=== PATIENT | male | born 1950 | race Caucasian/White ===

== ENCOUNTER 2016-04-28 12:28 | Inpatient (IN) | payer OTHER, BC ==
--- NOTE | ~2016-04-28 | CO ---
Unit #: [id number] #: [id number] Patient: AD DHILOLN [id number] [address] [address] [id number] I MR#: [id number] NAME: AD DHILLON ROOM: CIC2 Age: 65 Sex: M Admission Date: 04/28/2016 : 1950 Attending Physician: Ania Camarena M.D. Primary Care Physician: Hernando Benitez M.D. Consultation Date: 04/28/2016 CONSULTATION REPORT REASON FOR CONSULT Dialysis needs. HISTORY OF PRESENT ILLNESS Mr. Dhillon is a very pleasant 65-year-old white male well known to our service, who was admitted as an outpatient due to abnormal labs from the dialysis unit. Hemoglobin here in the emergency room was 4.7. The patient has a long standing history of GI bleeds with negative evaluations; however, this time he did have some bright red blood per rectum. Patient is due for dialysis today but came to the emergency room instead. Other than feeling a little weak, the patient otherwise is without complaint. He denies any abdominal pain. No nausea or vomiting. No chest pain or shortness of breath. No dizziness. PAST MEDICAL HISTORY 1. End-stage renal disease. 2. Chronic anemia with history of GI bleed. 3. Hypertension. 4. History of coronary artery disease. 5. COPD. 6. Pulmonary hypertension. 7. Diabetes. 8. Renovascular disease. 9. Valvular heart disease. 10. Obstructive sleep apnea. 11. Spinal stenosis. 12. BPH. 13. Polio. PAST SURGICAL HISTORY 1. CABG. 2. Lower extremity surgery. 3. Back surgery. 4. Cervical spine surgery. 5. Exploratory laparotomy because of the GI bleed. 6. Right arm fistula surgery. HOME MEDICATIONS 1. Catapres 0.2 mg t.i.d. 2. Minoxidil 2.5 mg twice daily. 3. Neurontin 100 mg twice daily. 4. Glipizide 10 mg twice daily. 5. Hydralazine 100 mg t.i.d. 6. Labetalol 300 mg twice daily. Unit #: [id number] #: [id number] Patient: AD DHILLON 7. Synthroid 75 mcg daily. 8. Lipitor 40 mg at bedtime. 9. Ventolin inhaler. 10. Sodium bicarbonate 650 mg p.o. t.i.d. 11. Amlodipine 5 mg daily. 12. Renvela 1600 mg daily. ALLERGIES He has a coded allergy to oxycodone. FAMILY HISTORY Significant for heart disease and lung cancer. SOCIAL HISTORY He has a history of smoking. No alcohol use. He lives with his . No drug use. He is noted to be a DNR. REVIEW OF SYSTEMS A complete 12-point review of systems was completed with the above findings. In addition, he denies any headaches or nosebleed. No sore throat or earache. No palpitations. No hemoptysis. No hematemesis. No melena. Again, the stool has been more bloody and purple. No swelling issues. No rashes. No itching. No flank pain. No fevers. No chills. No night sweats or hot flashes. No intolerance to heat or cold. No other bleeding issues noted. Weight has otherwise been stable. Unless otherwise indicated, the review of systems was negative. PHYSICAL EXAMINATION VITAL SIGNS: The patient is afebrile. Pulse 94, respiratory rate 18, blood pressure 137/65. GENERAL: This is a 65-year-old male lying in bed alert, in no acute distress. HEENT: Head is atraumatic, normocephalic. Eyes show pale conjunctivae with no scleral icterus. No nasal drainage or nosebleed. Oropharynx is moist. NECK: Shows no rigidity. HEART: Regular rate and rhythm with murmur present. No gallop or rub appreciated. LUNGS: Clear without wheezing. Breathing is nonlabored. ABDOMEN: Soft, nontender, nondistended. Bowel sounds are present. EXTREMITIES: No lower extremity pitting edema noted. SKIN: Dry without rashes. VASCULAR: The patient has a right arm fistula in place with good bruit and thrill. MUSCULOSKELETAL: No CVA tenderness to palpation. No joint effusions. NEUROLOGIC: Cranial nerves are grossly intact with no gross motor deficits. PSYCHIATRIC: Mood and affect appear normal. DIAGNOSTIC STUDIES LABORATORY: Chemistry this morning noteworthy for a sodium of 140, potassium 3.2, chloride 99, bicarbonate 26, glucose 116, BUN 43, creatinine 4.1, albumin 3.5. CBC noteworthy for hemoglobin of 4.7. INR was 1. ASSESSMENT AND PLAN 1. End-stage renal disease: Due to his acute gastrointestinal issues, we will delay his dialysis until tomorrow as there are no acute Unit #: [id number] #: [id number] Patient: AD DHILLON laboratory abnormalities or volume issues that would necessitate we do dialysis today. We will add him to the schedule here at [facility] tomorrow. 2. Hypokalemia: This should correct with the transfusions and Dr. Camarena has ordered two potassium runs. A magnesium level has been ordered. 3. Anemia with gastrointestinal bleed with transfusions ongoing. Surgery is scheduling a colonoscopy for tomorrow. 4. History of hypertension on home meds. I will be placing some hold parameter on those meds to avoid hypotension with his gastrointestinal bleed. 5. Chronic obstructive pulmonary disease with pulmonary hypertension. 6. History of coronary artery disease. 7. Diabetes. 8. The patient is noted to be a DNR. 9. I did discuss these issues with the patient and his . I would like to thank Dr. Camarena for this consult and the opportunity to participate in the evaluation and care of Mr. Dhillon. Dictated by... Jonnie Vazquez Jr., M.D. CELENA/connie TD: 04/28/2016 16:37 JOB #: [id number] CONSULTATION REPORT X Jonnie Vazquez MD X CONSULTATION REPORT
--- NOTE | ~2016-04-28 | DS ---
Unit #: [id number] #: [id number] Patient: AD DHILLON [id number] [address] [address] [id number] I MR#: [id number] NAME: AD DHILLON ROOM: 463 Age: 65 Sex: M Admission Date: 04/28/2016 : 1950 Discharge Date: 05/01/2016 Attending Physician: Paramjit Singh M.D. Primary Care Physician: Hernando Benitez M.D. DISCHARGE SUMMARY DISCHARGE DIAGNOSES 1. Symptomatic anemia. 2. Iron-deficiency anemia. 3. Chronic gastrointestinal bleed. 4. End-stage renal disease on dialysis. 5. Chronic respiratory failure. 6. Chronic obstructive pulmonary disease. 7. Obstructive sleep apnea. 8. Pulmonary hypertension. HOSPITAL COURSE The patient is a 65-year-old male, who presents to [facility] Emergency Department at the advice of his primary care provider secondary to abnormal laboratory values. The patient was noted to have a hemoglobin of 4.7 on routine blood work. The patient presented to [facility] Emergency Department and was admitted. The patient denies overt blood loss. He did undergo EGD which failed to reveal a source of blood loss. Workup did reveal what looks like a B12 and iron deficiency. The patient has received a total of 6 units of packed red cells at this time. The last two are being transfused as we speak. The patient wishes to discharge today after dialysis. The patient's hemoglobin prior to dialysis was 7.6 and he will receive 2 units of packed cells on top of this. As a result, it is felt reasonable to discharge the patient after dialysis and his additional 2 units. The patient states he feels well. Denies shortness of breath, chest pain, and dizziness at this time. DISCHARGE MEDICATIONS 1. Ventolin two puffs b.i.d. as needed. 2. Sodium bicarbonate 650 mg p.o. t.i.d. 3. Neurontin 100 mg p.o. b.i.d. 4. Labetalol 300 mg p.o. b.i.d. 5. Amlodipine 5 mg daily. 6. Lipitor 40 mg p.o. nightly. 7. Clonidine 0.2 mg p.o. t.i.d. 8. Hydralazine 100 mg p.o. t.i.d. 9. Minoxidil 2.5 mg p.o. b.i.d. 10. Renvela 1600 with food mg p.o. daily. 11. Protonix 40 mg p.o. b.i.d. 12. Glipizide 10 mg p.o. b.i.d. 13. Synthroid 75 mcg daily. 14. Vitamin B12 at 1000 mcg p.o. daily. Unit #: [id number] #: [id number] Patient: AD DHILLON 15. Iron gluconate 324 mg one p.o. b.i.d. FOLLOWUP The patient should follow up with his regularly scheduled dialysis for repeat hemoglobin. Dictated by... Peter Peres/connie TD: 05/03/2016 08:57 JOB #: [id number] DISCHARGE SUMMARY X Paramjit Singh MD X DISCHARGE SUMMARY
--- NOTE | ~2016-04-28 | CO ---
Unit #: [id number] #: [id number] Patient: AD DHILLON [id number] [facility] [address] [facility]. [place], [place] [address] [id number] I MR#: [id number] NAME: AD DHILLON ROOM: CIC2 Age: 65 Sex: M Admission Date: 04/28/2016 : 1950 Attending Physician: Lashanda Clements M.D. Primary Care Physician: Hernando Benitez M.D. Consultation Date: 04/28/2016 CONSULTATION REPORT BRIEF HISTORY The patient is a 65-year-old gentleman, who presents with a 2-day history of bright red blood per rectum along with dark tarry stools. He has had a significant problem with GI bleeds in the past with multiple negative workups. Last endoscopy was 5 years ago. He also had exploratory laparotomy looking for persistent bleeding. He denies any abdominal pain. No hematemesis. PAST MEDICAL HISTORY He has had a history of pneumonia, chronic renal failure, chronic respiratory failure, coronary artery disease, renal artery stenosis, hypertension, diabetes. PAST SURGICAL HISTORY He has had exploratory laparotomy, left AV fistula, and back surgery. SOCIAL HISTORY No smoking. No alcohol. FAMILY HISTORY Negative for GI malignancy. REVIEW OF SYSTEMS No cardiopulmonary complaints at this time. Else, 10 systems reviewed and negative. MEDICATIONS Catapres, minoxidil, Neurontin, hydralazine, labetalol, Ventolin, and Renvela. PHYSICAL EXAMINATION GENERAL: He is awake, alert, and appropriate. VITAL SIGNS: Current blood pressure is 130/49, temperature 97.9. HEENT: Unremarkable. NECK: Supple. No JVD. Trachea midline. LUNGS: Clear to auscultation. Bilateral breath sounds symmetric. CARDIOVASCULAR: Regular rate and rhythm. ABDOMEN: Soft, nontender, and nondistended. I palpate no masses. No hernias. EXTREMITIES: No clubbing, cyanosis, or edema. DIAGNOSTIC STUDIES LABORATORY RESULTS: Show a white count of 8.5, hemoglobin 4.7. INR is 1.0. Unit #: [id number] #: [id number] Patient: AD DHILLON ASSESSMENT Recurrent gastrointestinal bleed. PLAN Recommend resuscitation with blood. We will plan for upper and lower endoscopy. Dictated by... Peter Nesbitt/priscila TD: 04/29/2016 11:03 JOB #: [id number] CONSULTATION REPORT X Vicente East MD CONSULTATION REPORT
--- NOTE | ~2016-04-28 | CR72 ---
[facility] A Service of [facility] RADIOLOGY TEXT RESULTS PATIENT: AD DHILLON LOCATION: [address] : [birth year] UNIT #: [id number] AGE: [address]: Lashanda Clements MD SEX: M ORDER DR: [id number] [facility] [address] [facility]. [place], [place] [address] [id number] I MR#: [id number] Acc #: [id number] NAME: AD DHILLON : 1950 SEX: M STUDY DATE/TIME: 04/29/2016 04:51 UNIT: [facility] ROOM: [facility] STUDY DESCRIPTION: CR Chest Single View Portable Attending Physician: Lashanda Clements M.D. Ordering Physician: Rizwana Garcia M.D. Primary Care Physician: Hernando Benitez M.D. MEDICAL IMAGING REPORT This report is preliminary unless electronic signature is present EXAM Portable chest. DATE OF EXAM 04/29/2016, at 04:51. INDICATIONS COPD. Chronic anemia. FINDINGS AP portable chest is compared with 01/11/2016. Cardiomegaly stable status post CABG. Patient is status post cervical thoracic fusion. There is emphysema. The right lung is clear. On the left side, there is continued midlung opacity which is relatively stable from the old exam. This is nonspecific. No pneumothorax. Dictated by... Aaron Dickinson Jr., M.D. THIS IS AN ELECTRONICALLY VERIFIED REPORT Aaron Dickinson Jr., M.D. at 04/29/2016 11:01 PM DEANGELO/montana TD: 04/29/2016 18:36 JOB #: [id number] MEDICAL IMAGING REPORT COPY
--- NOTE | ~2016-04-28 | OR ---
Unit #: [id number] #: [id number] Patient: AD DHILLON [id number] [address] [place], [place] [address] [id number] I MR#: [id number] NAME: AD DHILLON ROOM: [facility] Date of Procedure: 04/29/2016 Admission Date: 04/28/2016 Surgeon: Dustin Rachel M.D. : 1950 Attending Physician: Lashanda Clements M.D. Primary Care Physician: Hernando Benitez M.D. OPERATIVE REPORT PREOPERATIVE DIAGNOSIS Anemia. POSTOPERATIVE DIAGNOSES Mild antral gastritis, moderate duodenitis of the bulb, and benign colonoscopy. PROCEDURES PERFORMED 1. Esophagogastroduodenoscopy with antral and duodenal biopsies. 2. Colonoscopy. ANESTHESIA MAC. COMPLICATIONS None. ESTIMATED BLOOD LOSS Minimal. DESCRIPTION OF PROCEDURE After the patient was prepped and draped in usual fashion, the scope was introduced through the mouth into the esophagus without difficulty. Stomach was intubated and insufflated. There was immediately noted to be some very mild antral gastritis. There were no ulcers or tumors present. Pictures and biopsies were taken. Duodenum was intubated and insufflated. The duodenal bulb had some moderate gastritis. There was evidence of melanosis to the mucosa as well. There were however no ulcers or tumors present. Pictures and biopsies were taken. The distal duodenum was normal down through the fourth portion. The scope was brought back into the stomach. Body and cardia examined by retroflexion. There were no additional mucosal lesions. There was not a hiatal hernia at the time of the examination. The scope was brought back into lower esophagus. Z-line was serpiginous. There was evidence of chronic reflux, but no acute esophagitis, ulcers, tumors, or varices were present. The proximal esophagus was visually normal. The scope was removed and colonoscopy performed. The scope was introduced through the anus and passed to the cecum. He had somewhat of a tortuous colon. It took a little bit of manipulation to reach the bottom. Pictures were taken to confirm position. The patient's prep was fair. On withdrawal, there was no visible evidence of colitis. There were no tumors. There were no significant diverticula. There were no polyps identified. There was a Unit #: [id number] #: [id number] Patient: AD DHILLON lot of thick green fluid. It was possible fairly small polyps could have been missed in a few locations, but nothing large. There were no perianal mucosal lesions. The scope was removed. Rectal exam performed, there were no masses or induration. The patient was taken to the recovery room in good condition. Dictated by... Peter Tate/priscila TD: 04/29/2016 20:59 JOB #: [id number] OPERATIVE REPORT X Dustin Rachel PROCEDURE OPERATIVE NOTE
--- NOTE | ~2016-04-28 | CO ---
Unit #: [id number] #: [id number] Patient: AD DHILLON [id number] [id number] [facility]. [place], [place] [address] [id number] MR#: [id number] NAME: AD DHILLON ROOM: CIC2 Age: 65 Sex: M Admission Date: 04/28/2016 : 1950 Attending Physician: Lashanda Clements M.D. Primary Care Physician: Hernando Benitez M.D. CONSULTATION REPORT HISTORY OF PRESENT ILLNESS This is a 65-year-old gentleman with past medical history of significant multiple medical problems. He has pulmonary fibrosis. He has COPD. He has coronary artery disease, hypertension, end-stage renal disease, renal artery stenosis on hemodialysis. The patient presented with a 1 to 2 day history of hematochezia. He had a hemoglobin drawn and on his last dialysis, it showed a hemoglobin of 4. The patient is therefore brought to the emergency room where he was admitted for GI bleed with iron deficiency blood loss anemia. The patient was placed on Protonix drip. He was given hemoglobin in the form of packed red blood cells and is still receiving those. He is not having any sort of chest pain. No nausea, no vomiting. Other than one reddish stool, no significant gastrointestinal complaints. The patient does not have history of fever, chills, nausea, vomiting, cough, or sick contacts. We have been asked to see in ICU. The patient has a history of sepsis with healthcare associated pneumonia. The patient has end-stage renal disease, on dialysis Sunday, Sunday, and Sunday, seen by Dr. Trejo. Chronic respiratory failure on 3 L of oxygen at night. Obstructive sleep apnea, on CPAP. Coronary artery disease, status post coronary artery bypass grafting followed by Dr. Castro. He has valvular heart disease with mild left ventricular hypertrophy. He has hypertension. He has a history of renal artery stenosis. He has mild to moderate pulmonary hypertension, spinal stenosis, diabetes, peripheral neuropathy, history of recurrent anemia, history of polio with bilateral lower extremity weakness, benign prostatic hypertrophy. PAST SURGICAL HISTORY Significant for coronary artery bypass graft, bilateral lower extremity surgery for polio, history of back surgery, history of cervical spine surgery, history of exploratory lap, history of left AV fistula, history of EGD and colonoscopy. SOCIAL HISTORY The patient lives with his . There is no alcohol use. Continues to smoke. He is mostly bedbound and uses a wheelchair to get around. The patient is a DNR. FAMILY HISTORY The patient has a family history of lung cancer and coronary artery disease. ALLERGIES The patient is allergic to oxycodone. HOME MEDICATIONS Unit #: [id number] #: [id number] Patient: AD DHILLON Include Catapres 0.2 mg p.o. t.i.d., minoxidil 2.5 mg b.i.d., Neurontin 100 mg p.o. b.i.d., glipizide 10 mg p.o. b.i.d., hydralazine 100 mg p.o. t.i.d., labetalol 300 mg p.o. b.i.d., levothyroxine 75 mcg p.o. daily, Lipitor 40 mg at bedtime, Ventolin 2 puffs inhaled b.i.d., Antacid 650 mg t.i.d., amlodipine besylate 5 mg p.o. daily, Renvela 1600 mg daily. REVIEW OF SYSTEMS As per the history of present illness. PHYSICAL EXAMINATION VITAL SIGNS: Temperature 98.8, pulse 94, respiratory rate 18, blood pressure 137/65. HEENT: Extraocular movements are intact. CHEST: Shows kind of decreased breath sounds bilaterally, but no rhonchi, rales, or wheezes. CARDIOVASCULAR: Regular rate. No gallop. ABDOMEN: Soft, nontender, and nondistended. EXTREMITIES: Shows no evidence of edema. DIAGNOSTIC STUDIES LABORATORY RESULTS: Ferritin 781, iron is 47. Magnesium is 2.3, BUN and creatinine 43/4.6. INR is 1.0. Hemoglobin is not repeated after receiving several units of packed red blood cells. ASSESSMENT AND PLAN 1. Acute on chronic anemia secondary to gastrointestinal bleed. 2. Possible lower gastrointestinal bleed. 3. End-stage renal disease, on hemodialysis. 4. CPAP. Family is going to bring CPAP from home. 5. Hypertension. 6. Gastrointestinal bleed. The patient will have scopes by Gastroenterology tomorrow. 7. End-stage renal disease. The patient is to have hemodialysis as usual, although, he may currently be a bit hypotensive. We are going to continue the patient's home inhaler medications. We are going to check a stat procalcitonin just to make sure there is no infection and we will follow the EGD to see if the patient will require supplemental oxygen. May require BiPAP following the procedure tomorrow anyway he should wear it at night. Thank you very much for this consult and allowing us to participate in the care of this patient. Please page me at [phone] if you have any questions. Dictated by... ePter Stuart/priscila TD: 04/29/2016 23:34 JOB #: [id number] Unit #: [id number] #: [id number] Patient: AD DHILLON CONSULTATION REPORT X Benedict Garcia MD X CONSULTATION REPORT
--- NOTE | ~2016-04-28 | EKG ---
PATIENT: AD DHILLON UNIT #: [id number] Ventricular Rate: 98 BPM Atrial Rate: 98 BPM P-R Interval: 190 ms QRS Duration: 122 ms Q-T Interval: 414 ms QTC Calculation(Bezet): 528 ms P Hazen: 95 degrees Calculated R Hazen: -43 degrees Calculated T Hazen: 120 degrees Diagnosis Line: Sinus rhythm with Premature supraventricular Diagnosis Line: complexes Diagnosis Line: Left atrial enlargement Diagnosis Line: Left axis deviation Diagnosis Line: Septal infarct (cited on or before 05-JAN-2016) Diagnosis Line: Non-specific intra-ventricular conduction delay Diagnosis Line: ST and T wave abnormality, consider lateral ischemia Diagnosis Line: Abnormal ECG Diagnosis Line: When compared with ECG of 05-JAN-2016 16:25, Diagnosis Line: T wave inversion less evident in Lateral leads Diagnosis Line: Confirmed by ROSHNI JAMES MD ([id number]) on 04/28/2016 Diagnosis Line: 4:48:56 PM INTERPRETING MD: ERIKA FELDER
--- NOTE | ~2016-04-28 | HP ---
Unit #: [id number] #: [id number] Patient: AD DHILLON [id number] [address] [address] [id number] MR#: [id number] NAME: AD DHILLON ROOM: Age: 65 Sex: M Admission Date: 04/28/2016 : 1950 Attending Physician: Ryan Austin M.D. Primary Care Physician: Hernando Benitez M.D. HISTORY AND PHYSICAL CHIEF COMPLAINT Abnormal labs. HISTORY OF PRESENT ILLNESS The patient is a 65-year-old male with past medical history of multiple medical problems including COPD, obstructive sleep apnea, chronic respiratory failure, coronary artery disease, hypertension, renal artery stenosis, spinal stenosis, diabetes, chronic GI bleed, recurrent anemia, BPH, polio, end-stage renal disease who presented to the emergency department for evaluation of the above. History is obtained from the patient's who is at the bedside as well as discussion with ER staff and the patient. The patient had dialysis on April 26, 2016. Labs were done. The patient was called today and told to come to the emergency department due to low hemoglobin. The patient's states that yesterday he had a purple/red loose stool. He denies any abdominal pain. He has not had fever. No chest pain. No difficulty breathing. In the emergency department, hemoglobin is 4.7. He was Hemoccult positive. He was given 80 mg of Protonix followed by a Protonix drip at 8 mg per hour. Two units of packed red blood cells have been ordered. He is being admitted to [facility] for evaluation and further treatment. PAST MEDICAL HISTORY 1. Admission to [facility], January 04 through January 11, 2016 for sepsis secondary to healthcare-associated pneumonia. 2. End-stage renal disease on dialysis Sunday, Sunday, Sunday followed by Dr. Trejo. 3. Chronic respiratory failure on 3 L of oxygen at night. 4. COPD, followed by Dr. Álvarez. 5. Obstructive sleep apnea on CPAP. 6. Coronary artery disease, status post coronary artery bypass grafting, followed by Dr. Castro. 7. Valvular heart disease: The patient had an echocardiogram, March 24, 2013, that showed an ejection fraction of 50% with severe septal hypokinesis, mild concentric left ventricular hypertrophy, mild mitral stenosis, severe mitral regurgitation, [id number] tricuspid regurgitation, moderate pulmonic valvular regurgitation, elevated right ventricular systolic pressure at 40-50 mmHg. 8. Hypertension. 9. Renal artery stenosis. Unit #: [id number] #: [id number] Patient: AD DHILLON 10. Severe spinal stenosis. 11. Diabetes with peripheral neuropathy. 12. Chronic GI bleed with recurrent anemia. 13. BPH. 14. Polio with bilateral lower extremity weakness. PAST SURGICAL HISTORY 1. Coronary artery bypass grafting. 2. Bilateral lower extremity surgery for polio. 3. Back surgery. 4. Cervical spine surgery. 5. Exploratory laparotomy. 6. Left AV fistula. 7. EGD and colonoscopy. SOCIAL HISTORY The patient lives with his . There is no alcohol use. He continues to smoke. He is mostly in a wheelchair. CODE STATUS His code status is a do not resuscitate. FAMILY HISTORY Notable for lung cancer and coronary artery disease. ALLERGIES Oxycodone. HOME MEDICATIONS 1. Catapres 0.2 mg t.i.d. 2. Minoxidil 2.5 mg twice daily. 3. Neurontin 100 mg twice daily. 4. Glipizide 10 mg twice daily. 5. Hydralazine 100 mg t.i.d. 6. Labetalol 300 mg twice daily. 7. Levothyroxine 75 mcg daily. 8. Lipitor 40 mg at bedtime. 9. Ventolin two puffs inhaled twice daily p.r.n. 10. Sodium bicarbonate 650 t.i.d. 11. Amlodipine 5 mg daily. 12. Renvela 1600 mg daily. REVIEW OF SYSTEMS A complete review of systems is negative except as indicated in the HPI. DIAGNOSTIC STUDIES LABORATORY: INR is 1. Complete blood count notable for hemoglobin and hematocrit of 4.7 and 13.8 respectively. MCV is 90.2, RDW 19.4. Comprehensive metabolic panel notable for potassium of 3.2. Chloride is 99, glucose 116, BUN and creatinine 43 and 4.1 respectively. Total protein is 5.8. PHYSICAL EXAMINATION VITAL SIGNS: Temperature is 97.9, pulse 69, respirations 16, blood pressure 133/49, oxygen saturation is 100% on room air. GENERAL: The patient is a male who is awake and alert. HEENT: The head is atraumatic. Mucous membranes are moist. NECK: Supple. Trachea is midline. Unit #: [id number] #: [id number] Patient: AD DHILLON CARDIOVASCULAR: Regular rate and rhythm. He does have a 3/6 systolic ejection murmur. LUNGS: Clear to auscultation bilaterally with no increased work of breathing. ABDOMEN: Soft, nontender with bowel sounds present all four quadrants. RECTAL: Heme positive per ER documentation. EXTREMITIES: Nontender with no pedal edema. NEUROLOGIC: The patient is awake and alert. He follows commands. PSYCHIATRIC: Mood and affect are normal. The patient is cooperative. SKIN: Skin of examined areas is warm and dry. ASSESSMENT The patient is a 65-year-old male with: 1. Acute on chronic anemia: The patient's hemoglobin was 9.6 on January 11, 2016. It is 4.7 today. Two units of packed red blood cells have been ordered. 2. Gastrointestinal bleed: The patient on January 04, 2010, had upper endoscopy followed by laparotomy with enterotomy and hand threading of the colonoscope checking for source of bleeding. No source of bleeding was found at that time. He has not had endoscopy since that time. The patient received 80 mg of Protonix in the emergency department and Protonix drip has been ordered. 3. Hypokalemia. 4. End-stage renal disease on dialysis Sunday, Sunday, Sunday with last dialysis being April 26, 2016. 5. Chronic respiratory failure on 3 L of oxygen per nasal cannula. 6. Chronic obstructive pulmonary disease, followed by Dr. Álvarez. 7. Obstructive sleep apnea on CPAP. 8. Coronary artery disease, status post coronary artery bypass grafting. 9. Valvular heart disease. 10. Pulmonary hypertension. 11. Diabetes. 12. Hypertension. 13. Polio with residual lower extremity weakness. 14. Tobacco abuse. PLAN 1. Admit to intensive care unit. 2. NPO until seen by [facility]. 3. Transfuse 2 units of packed red blood cells as previously ordered. 4. Hemoglobin and hematocrit one hour after transfusion q.6 hours. Will plan to transfuse for hemoglobin less than 8 due to history of coronary artery disease. 5. (1) , B12 and folate. 6. Consult [facility] regarding gastrointestinal bleed. 7. Protonix drip at 8 mg per hour. 8. Replace potassium. 9. Check magnesium level. 10. Consult Dr. Trejo regarding end-stage renal disease and dialysis needs. 11. Check EKG and cardiac enzymes. 12. Supplemental oxygen. 13. P.r.n. DuoNeb. 14. CPAP at home settings. 15. Consult Dr. Garcia regarding intensive care unit admission. 16. Low-dose sliding scale insulin with Accu-Cheks. 17. Sequential compression devices for deep venous thrombosis Unit #: [id number] #: [id number] Patient: AD DHILLON. 18. Repeat labs in the morning. 19. Regarding code status, the patient is a do not resuscitate. Thirty seven minutes critical care time spent in the care of this patient (1 p.m. to 1:37 p.m.). Dictated by Peter Hines TD: 04/28/2016 13:51 JOB #: [id number] HISTORY AND PHYSICAL X Ania Camarena MD X HISTORY AND PHYSICAL
[~2016-04-28 12:28] MED LIST: ACETAMINOPHEN650 M2 PO; ADVAIR 2501 DISK W/D PO; ADVAIR DISKU1 250/50 INH; AL-MAG HYDROX-S30 M1 PO; ALBUTEROL0.83 MG/ML IH; ALBUTEROL17 GM INH; ALDACTONE25 MG PO; APRESOLINE PO; AUGMENTIN875 MG PO; AVANDAMET 4 MG/1 TAB PO; AVANDAMET PO; AZITHROMYCIN250 MG PO; BENEFIBER1 PKT PO; BROVANA; BROVANA15 MCG/2 M IH; CALCITRIOL0.5 MCG PO; CALCIUM ACETAT667 M2 PO; CARDIZEM CD PO; CARDIZEM SR PO; CARDURA PO; CARDURA4 M1 PO; CATAPRES0.1 MG PO; CLONIDINE HCL0.1 MG PO; COMBIVENT U/D3 M2 INH; COZAAR25 MG PO; DILTIAZEM HCL; DILTIAZEM HCL PO; DIOVAN HCT 320/1 TA1 PO; DIOVAN HCT 3201 EACH PO; DIOVAN PO; DIOVAN320 MG PO; DITROPAN PO; DITROPAN5 MG PO; FERROUS SULFATE PO; FLOMAX0.4 M1 PO; FLONASE 0.05% N16 G1; FOLIC ACID PO; GABAPENTIN400 M2 PO; GLIPIZIDE10 MG PO; GLUCOPHAGE500 MG PO; GLUCOTROL PO; HIBICLENS118 ML TOP; HYDRALAZINE HC100 MG PO; HYDRALAZINE HCL50 MG PO; HYDROCODONE-APA1 T56 PO; HYZAAR 100-25 T1 TAB PO; JANUVIA PO; K-DUR20 ME1 PO; KCL PO; KEFZOL IV; LABETALOL HCL200 MG PO; LABETALOL HCL300 MG PO; LASIX PO; LASIX80 MG PO; LEVAQUIN PO; LEVAQUIN750 MG PO; LIPITOR40 MG PO; LISINOPRIL PO; LISINOPRIL5 MG PO; LOC PO; LORTAB 10-5001 EACH PO; METFORMIN PO; MINOXIDIL2.5 MG PO; MYRBETRIQ25 MG PO; NASONEX17 GM; NEURONTIN PO; NEURONTIN800 MG PO; NORCO1 TAB 10/3 PO; NORVASC PO; OXYCODONE HCL5 M1 PO; OXYCONTIN PO; OXYCONTIN40 MG PO; OXYGEN; OXYIR5 MG PO; PERCOCET10 PO; PERFOROMIS20 MCG/2 M INH; POTASSIUM CHLO10 ME1 PO; POTASSIUM CHLO10 MEQ PO; PREDNISONE PO; PREDNISONE10 MG PO; PROAIR HFA; PROAIR HFA INH; PROAIR HFA8.5 GM INH; PROSCAR5 MG PO; PROTONIX PO; REQUIP1 MG PO; SANTYL15 G1 TOP; SENNA S TABLET1 TAB PO; SINGULAIR PO; SODIUM BICARBO650 MG PO; SYMBICORT INH; SYNTHROID75 MCG PO; TEKTURNA150 MG PO; TEKTURNA300 MG PO; TOPROL XL PO; TUDORZA PRESS400 MCG; TYL325 PO; TYLENOL PM PO; VALTURNA 300-321 TAB; VALTURNA 300-321 TAB PO; VESICARE PO; VITAMIN D2000 UNI1 PO; ZESTRIL30 MG PO; ZYRTEC PO
[2016-04-28 12:31] LABS: BASOPHIL# 0.1 X10e3 (0-0.3); EOSINOPHIL# 0.1 X10e3 (0-0.7); EOSINOPHIL% 0.9 % (0.0-7.0); HEMATOCRIT 13.8 % (38.0-50.0); LYMPHOCYTE# 1.4 X10e3 (1.0-3.5); LYMPHOCYTE% 15.9 % (17.0-45.0); MEAN CELL VOLUME 90.2 FL (83-96); MEAN CORPUSCULAR HEMOGLOBIN 30.8 PG (28-34); MEAN CORPUSCULAR HGB CONC 34.2 g/dL (30-36); MEAN PLATELET VOLUME 8.5 FL (6.5-11.5); MONOCYTE# 0.6 X10e3 (0-1.0); MONOCYTE% 6.9 % (3.0-12.0); NEUTROPHIL# 6.4 X10e3 (1.5-7.1); NEUTROPHIL% 75.3 % (40-75); PLATELET COUNT 237 X10e3 (140-420); RED BLOOD COUNT 1.53 X10e (3.90-5.60); RED CELL DISTRIBUTION WIDTH 19.4 % (11.0-15.5); WHITE BLOOD COUNT 8.5 X10e3 (4.0-10.5)
[2016-04-28 12:34] LABS: PROTHROMBIN TIME (PATIENT) 10.8 SECONDS (9.6-11.5)
[2016-04-28 12:35] LABS: HEMOGLOBIN 4.7 gm/dL (13.0-16.0)
[2016-04-28 12:36] LABS: DIFF IND YES
[2016-04-28] MEDS ORDERED: MINOXIDIL2.5 MG DOB (12:46)
[2016-04-28] MEDS ORDERED: NEURONTIN100 MG PO (12:46)
[2016-04-28] MEDS ORDERED: GLIPIZIDE10 MG PO (12:46)
[2016-04-28] MEDS ORDERED: CLONIDINE PO (12:46)
[2016-04-28] MEDS ORDERED: LABETALOL HCL300 MG PO (12:47)
[2016-04-28] MEDS ORDERED: HYDRALAZINE HC100 MG PO (12:47)
[2016-04-28] MEDS ORDERED: LIPITOR40 MG PO (12:48)
[2016-04-28] MEDS ORDERED: LEVOTHYROXINE75 MCG PO (12:48)
[2016-04-28] MEDS ORDERED: ANTACID650 MG PO (12:49)
[2016-04-28] MEDS ORDERED: AMLODIPINE BESYL5 MG PO (12:49)
[2016-04-28] MEDS ORDERED: ALBUTEROL17 GM INH (12:49)
[2016-04-28] MEDS ORDERED: RENVELA800 MG DOB (12:51)
[2016-04-28 12:55] LABS: ANISOCYTOSIS MOD; PLATELET ESTIMATE NORMAL (NORMAL)
[2016-04-28 12:56] LABS: ALBUMIN SERUM 3.5 g/dL (3.5-5.0); BILIRUBIN, DIRECT 0.1 mg/dL (0.0-0.2); BILIRUBIN,INDIRECT 0.5 mg/dL (0.0-0.9); BILIRUBIN,TOTAL 0.6 mg/dL (0.2-2.0); BUN/CREATININE RATIO 10.48; CALCIUM SERUM 9.2 mg/dL (8.4-10.2); CREATININE SERUM 4.1 mg/dL (0.6-1.4); GLOM FILT RATE Estimated 15.5 mL/min (>60); POTASSIUM 3.2 mmol/L (3.5-5.1); PROTEIN TOTAL SERUM 5.8 g/dL (6.0-8.3)
[2016-04-28 15:42] LABS: MAGNESIUM 2.3 mg/dL (1.6-3.0)
[2016-04-28 16:07] LABS: %MB 3.3 % (0.0-4.0); MB 3.2 ng/ml
[2016-04-28 20:51] LABS: %MB 4.6 % (0.0-4.0)
[2016-04-28 22:08] LABS: HEMATOCRIT 18.9 % (38.0-50.0)
[2016-04-28 22:10] LABS: HEMOGLOBIN 6.4 gm/dL (13.0-16.0)
[2016-04-29 03:47] LABS: BASOPHIL# 0.1 X10e3 (0-0.3); BASOPHIL% 0.9 % (0-2.5); EOSINOPHIL# 0.1 X10e3 (0-0.7); EOSINOPHIL% 0.6 % (0.0-7.0); HEMATOCRIT 23.2 % (38.0-50.0); HEMOGLOBIN 7.8 gm/dL (13.0-16.0); LYMPHOCYTE# 1.1 X10e3 (1.0-3.5); LYMPHOCYTE% 9.3 % (17.0-45.0); MEAN CELL VOLUME 88.4 FL (83-96); MEAN CORPUSCULAR HEMOGLOBIN 29.7 PG (28-34); MEAN CORPUSCULAR HGB CONC 33.6 g/dL (30-36); MEAN PLATELET VOLUME 8.1 FL (6.5-11.5); MONOCYTE# 0.8 X10e3 (0-1.0); MONOCYTE% 6.4 % (3.0-12.0); NEUTROPHIL# 9.7 X10e3 (1.5-7.1); NEUTROPHIL% 82.8 % (40-75); PLATELET COUNT 249 X10e3 (140-420); RED BLOOD COUNT 2.63 X10e (3.90-5.60); RED CELL DISTRIBUTION WIDTH 16.5 % (11.0-15.5); WHITE BLOOD COUNT 11.7 X10e3 (4.0-10.5)
[2016-04-29 03:48] LABS: DIFF IND NO
[2016-04-29 04:26] LABS: %MB 3.8 % (0.0-4.0); MB 4.5 ng/ml
[2016-04-29 08:04] LABS: ALBUMIN SERUM 3.6 g/dL (3.5-5.0); BILIRUBIN,TOTAL 0.6 mg/dL (0.2-2.0); BUN/CREATININE RATIO 8.6; CALCIUM SERUM 9.3 mg/dL (8.4-10.2); GLOM FILT RATE Estimated 12.4 mL/min (>60); MAGNESIUM 2.5 mg/dL (1.6-3.0); PHOSPHOROUS 5.2 mg/dL (2.5-4.6); POTASSIUM 3.3 mmol/L (3.5-5.1)
[2016-04-29 08:21] LABS: HEMATOCRIT 24.6 % (38.0-50.0); HEMOGLOBIN 8.2 gm/dL (13.0-16.0)
[2016-04-29 22:28] LABS: HEMATOCRIT 25.4 % (38.0-50.0); HEMOGLOBIN 8.6 gm/dL (13.0-16.0)
[2016-04-30 04:37] LABS: BASOPHIL# 0.1 X10e3 (0-0.3); BASOPHIL% 0.9 % (0-2.5); EOSINOPHIL% 0.4 % (0.0-7.0); HEMATOCRIT 23.7 % (38.0-50.0); HEMOGLOBIN 7.9 gm/dL (13.0-16.0); LYMPHOCYTE# 0.9 X10e3 (1.0-3.5); LYMPHOCYTE% 11.7 % (17.0-45.0); MEAN CELL VOLUME 88.6 FL (83-96); MEAN CORPUSCULAR HEMOGLOBIN 29.3 PG (28-34); MEAN CORPUSCULAR HGB CONC 33.1 g/dL (30-36); MEAN PLATELET VOLUME 8.2 FL (6.5-11.5); MONOCYTE# 0.6 X10e3 (0-1.0); MONOCYTE% 7.3 % (3.0-12.0); NEUTROPHIL# 6.3 X10e3 (1.5-7.1); NEUTROPHIL% 79.7 % (40-75); PLATELET COUNT 210 X10e3 (140-420); RED BLOOD COUNT 2.68 X10e (3.90-5.60); RED CELL DISTRIBUTION WIDTH 16.5 % (11.0-15.5); WHITE BLOOD COUNT 7.9 X10e3 (4.0-10.5)
[2016-04-30 04:38] LABS: DIFF IND NO
[2016-04-30 05:57] LABS: BUN/CREATININE RATIO 5.48; CALCIUM SERUM 8.3 mg/dL (8.4-10.2); CREATININE SERUM 3.1 mg/dL (0.6-1.4); GLOM FILT RATE Estimated 21.5 mL/min (>60); POTASSIUM 3.8 mmol/L (3.5-5.1)
[2016-04-30 10:03] LABS: HEMATOCRIT 24.4 % (38.0-50.0); HEMOGLOBIN 8.2 gm/dL (13.0-16.0)
[2016-04-30 10:34] LABS: URINE SOURCE CLEAN CATCH
[2016-04-30 10:39] LABS: URINE APPEARANCE CLEAR; URINE BILIRUBIN NEG (NEG); URINE BLOOD NEG (NEG); URINE COLOR YELLOW; URINE GLUCOSE 100 MG/DL (NEG); URINE KETONE NEG (NEG); URINE LEUKOCYTE ESTERASE NEG (NEG); URINE NITRATE NEG (NEG); URINE PROTEIN 2+ (NEG); URINE SPECIFIC GRAVITY 1.011 (1.003-1.035); URINE UROBILINOGEN 0.2 MG/DL (NEG)
[2016-04-30 10:47] LABS: MICRO INDICATED? NO
[2016-04-30 16:32] LABS: HEMATOCRIT 23.6 % (38.0-50.0); HEMOGLOBIN 7.9 gm/dL (13.0-16.0)
[2016-05-01 04:21] LABS: BASOPHIL# 0.1 X10e3 (0-0.3); BASOPHIL% 0.6 % (0-2.5); EOSINOPHIL# 0.1 X10e3 (0-0.7); EOSINOPHIL% 0.9 % (0.0-7.0); HEMATOCRIT 22.8 % (38.0-50.0); HEMOGLOBIN 7.6 gm/dL (13.0-16.0); LYMPHOCYTE# 0.8 X10e3 (1.0-3.5); LYMPHOCYTE% 8.6 % (17.0-45.0); MEAN CELL VOLUME 89.4 FL (83-96); MEAN CORPUSCULAR HEMOGLOBIN 29.8 PG (28-34); MEAN CORPUSCULAR HGB CONC 33.3 g/dL (30-36); MEAN PLATELET VOLUME 8.3 FL (6.5-11.5); MONOCYTE# 0.6 X10e3 (0-1.0); MONOCYTE% 6.9 % (3.0-12.0); NEUTROPHIL# 7.3 X10e3 (1.5-7.1); PLATELET COUNT 216 X10e3 (140-420); RED BLOOD COUNT 2.55 X10e (3.90-5.60); RED CELL DISTRIBUTION WIDTH 16.7 % (11.0-15.5); WHITE BLOOD COUNT 8.8 X10e3 (4.0-10.5)
[2016-05-01 04:22] LABS: DIFF IND YES
[2016-05-01 04:37] LABS: BUN/CREATININE RATIO 5.9; CALCIUM SERUM 8.4 mg/dL (8.4-10.2); CREATININE SERUM 4.4 mg/dL (0.6-1.4); GLOM FILT RATE Estimated 14.3 mL/min (>60); POTASSIUM 3.8 mmol/L (3.5-5.1)
[2016-05-01 04:50] LABS: ANISOCYTOSIS SL; HYPOCHROMIA SL; PLATELET ESTIMATE DECREASED (NORMAL); POLYCHROMASIA SL
[2016-05-01] MEDS ORDERED: PROTONIX PO (19:08)
[2016-05-01] MEDS ORDERED: B-121000 MC1 PO (19:09)
[2016-05-01] MEDS ORDERED: FERROUS GLUCON324 MG PO (19:10)
== END 2016-05-01 21:25 | disposition home or self-care (01) | DRG 811 ==
LOC: CED 12:28 → CEDOF 13:54 → CICCU2 15:57 → C4C 04-30 21:22
PROVIDERS: Emergency Medicine; Family Medicine; Internal Medicine; Internal Medicine Pulmonary Disease; Surgery
PROC: 30233N1 Transfusion of Nonautologous Red Blood Cells into Peripheral Vein, Percutaneous Approach (ICD-10-PCS; principal; 2016-04-28)
PROC: 5A1D60Z (ICD-10-PCS; 2016-04-29 09:00)
PROC: 3E0234Z Introduction of Serum, Toxoid and Vaccine into Muscle, Percutaneous Approach (ICD-10-PCS; 2016-05-01)
DX: D64.9 Anemia, unspecified (principal); N18.6 End stage renal disease; J96.10 Chronic respiratory failure, unspecified whether with hypoxia or hypercapnia; I12.0 Hypertensive chronic kidney disease with stage 5 chronic kidney disease or end stage renal disease; I27.2 Other secondary pulmonary hypertension; J84.10 Pulmonary fibrosis, unspecified; K92.2 Gastrointestinal hemorrhage, unspecified; D50.0 Iron deficiency anemia secondary to blood loss (chronic); F17.210 Nicotine dependence, cigarettes, uncomplicated; K21.9 Gastro-esophageal reflux disease without esophagitis; E11.9 Type 2 diabetes mellitus without complications; E03.9 Hypothyroidism, unspecified; J44.9 Chronic obstructive pulmonary disease, unspecified; G47.33 Obstructive sleep apnea (adult) (pediatric); I25.10 Atherosclerotic heart disease of native coronary artery without angina pectoris; Z95.1 Presence of aortocoronary bypass graft; Z86.12 Personal history of poliomyelitis; E87.6 Hypokalemia; Z23 Encounter for immunization; Z82.49 Family history of ischemic heart disease and other diseases of the circulatory system; Z80.1 Family history of malignant neoplasm of trachea, bronchus and lung; Z66 Do not resuscitate; K29.80 Duodenitis without bleeding; K29.50 Unspecified chronic gastritis without bleeding
CPT/HCPCS: 36415; 71010; 80048; 80053; 80076; 81003; 82308; 82550; 82553; 82607; 82728; 82746; 82947; 83540; 83550; 83735; 84100; 84132; 84484; 85014; 85018; 85025; 85610; 86850; 86900; 86901; 86923; 87086; 88305; 88312; 93005; 94640; 94760; 99291; C9113; J1630; J1815; J2175; J2250; J2916; J3010; P9016; Q4081

== ENCOUNTER 2016-07-28 15:43 | Inpatient (IN) | payer OTHER, BC ==
--- NOTE | ~2016-07-28 | HP ---
Unit #: [id number] #: [id number] Patient: AD DHILLON [id number] [id number] [facility]. [place], [place] [address] [id number] I MR#: [id number] NAME: AD DHILLON ROOM: 227 Age: 65 Sex: M Admission Date: 07/28/2016 : 1950 Attending Physician: Lorna Persaud M.D. Primary Care Physician: Hernando Benitez M.D. HISTORY AND PHYSICAL REVISED REPORT CHIEF COMPLAINT Low hemoglobin. HISTORY OF PRESENT ILLNESS The patient is a 65-year-old male with a history of multiple medical problems including COPD, obstructive sleep apnea, chronic respiratory failure, coronary artery disease, hypertension, renal artery stenosis, spinal stenosis, diabetes, chronic GI bleed, recurrent anemia, brought to the emergency room from the dialysis concerning for the low hemoglobin. The patient has multiple hospitalizations in the past with a workup with the upper endoscopy and colonoscopy and with no source found. The patient's hemoglobin is down to 6.1 and he is being admitted for the above reasons. The patient denies any chest pain, nausea or vomiting, dizziness, headache. PAST MEDICAL HISTORY History of end-stage renal disease, chronic respiratory failure on 3 L of oxygen at night, COPD, obstructive sleep apnea, coronary artery disease, valvular heart disease and hypertension, renal artery stenosis, severe spinal stenosis, diabetes with peripheral neuropathy, chronic GI bleed with recurrent anemia, BPH, polio with bilateral lower extremity weakness. PAST SURGICAL HISTORY CABG, bilateral lower extremity surgery for polio, back surgery, cervical spine surgery, ex lap, left AV fistula, EGD and colonoscopy. SOCIAL HISTORY The patient lives with his . There is no alcohol. He continues to smoke. He is mostly in a wheelchair. His code status is Do Not Resuscitate. FAMILY HISTORY Family is notable for lung cancer and coronary artery disease. ALLERGIES Oxycodone. HOME MEDICATION He is on Catapres, minoxidil, Neurontin, glipizide, hydralazine, labetalol, levothyroxine, Lipitor, Ventolin, sodium bicarb, amlodipine, Renvela. Unit #: [id number] #: [id number] Patient: AD DHILLON REVIEW OF SYMPTOMS Fourteen-point review of symptoms performed and only pertinent positive findings described above, remaining are negative. PHYSICAL EXAMINATION GENERAL APPEARANCE: On examination the patient is lying on a bed not in acute distress. VITAL SIGNS: Temperature is 98.7, pulse 78, respiratory rate 18, blood pressure 139/50, sating 100% at room air. HEENT: Head atraumatic/normocephalic. Pupils equal, round and reacting to light and accommodation. Positive for pallor. No icterus. Dry mucous membranes NECK: Supple. LUNGS: Decreased air entry at the bases. HEART: Regular rate and rhythm. ABDOMEN: Soft, nontender. ANO-RECTAL: Not done by ER. EXTREMITIES: Nontender, with no pedal edema. NEUROLOGIC: Awake, alert, oriented. He follows commands. SKIN: Warm and dry. DIAGNOSTIC STUDIES LABORATORY DATA: Glucose 264, BUN 53, creatinine 4.2, sodium 137, potassium 3.5, chloride 98, bicarb 23 and calcium 8.9, INR is 1.1, WBC 6.5, hemoglobin 6.1, hematocrit 18.4, platelets 245. ASSESSMENT 1. Anemia. 2. End-stage renal disease on hemodialysis. 3. Peripheral artery disease. PLAN 1. Plan to admit the patient as inpatient with the telemetry. 2. Type and cross two units of packed red blood cells. 3. GI consult. 4. Renal consult for the hemodialysis. 5. Hold aspirin. 6. Continue with the Protonix 40 mg b.i.d. 7. Further recommendations will follow. *ACCOUNT NUMBER MODIFIED. Dictated by Peter Neumann/lacey TD: 07/28/2016 19:10 JOB #: [id number] Unit #: [id number] #: [id number] Patient: AD DHILLON HISTORY AND PHYSICAL Page 1 of 1 X RETA LIVE MD HISTORY AND PHYSICAL
--- NOTE | ~2016-07-28 | CO ---
Unit #: [id number] #: [id number] Patient: AD DHILLON [id number] [address] [address] [id number] I MR#: [id number] NAME: AD DHILLON ROOM: 227 Age: 65 Sex: M Admission Date: 07/28/2016 : 1950 Attending Physician: Lorna Persaud M.D. Primary Care Physician: Hernando Benitez M.D. Consultation Date: 07/29/2016 CONSULTATION REPORT REASON FOR CONSULT Dialysis needs. HISTORY OF PRESENT ILLNESS Mr. Dhillon is a very pleasant 65-year-old gentleman well known to us, whom we were asked to see today because he missed his dialysis yesterday after being sent to the emergency room by me due to an outpatient call with a hemoglobin of 6. Patient has a history of recurrent GI bleeds with unknown source. He was actually just here a few months ago for a similar presentation with a hemoglobin of 4.7. It looks like he received 6 units of blood during that admission and had a negative EGD. GI has been asked to see the patient today. He denies any bright red blood or melena saying that his stools are brown. No nausea or vomiting. No abdominal pain. No headache or dizziness. No chest pain. Breathing is at baseline. PAST MEDICAL HISTORY 1. End-stage renal disease. 2. Chronic anemia with a history of GI bleed. 3. Hypertension. 4. Coronary artery disease. 5. COPD. 6. Pulmonary hypertension. 7. Diabetes. 8. Renovascular disease. 9. Valvular heart disease. 10. Obstructive sleep apnea. 11. Spinal stenosis. 12. BPH. 13. Previous polio. PAST SURGICAL HISTORY 1. CABG. 2. Back surgery. 3. C-spine surgery. 4. Previous exploratory laparotomy due to GI bleed. 5. Right arm fistula surgery. HOME MEDICATIONS 1. ProAir inhaler. 2. Norvasc. 3. Aspirin, which is on hold. 4. Lipitor. 5. Catapres. 6. Ferrous gluconate. Unit #: [id number] #: [id number] Patient: AD DHILLON 7. Neurontin. 8. Hydralazine. 9. Hydrocodone. 10. Combivent inhaler. 11. Labetalol. 12. Nephrocaps. 13. Protonix. 14. Renvela. 15. Riboflavin daily. 16. Sodium bicarbonate. 17. Synthroid. ALLERGIES He has a coded allergy to OxyContin. FAMILY HISTORY Significant for cancer and heart disease. SOCIAL HISTORY He is a former smoker. No alcohol or drug abuse. He lives with his . REVIEW OF SYSTEMS A complete 12-point review of systems was completed with the above findings. In addition, he denies any nosebleed. No sore throat or earache. No palpitations. No cough or hemoptysis. No dysuria or hematuria. No swelling. No rashes. No itching. No flank pain. No fevers. No chills. No night sweats or hot flashes. No intolerance to heat or cold. He is unaware of any recent significant weight changes. Unless otherwise indicated, the review of systems was negative. PHYSICAL EXAMINATION VITAL SIGNS: The patient is afebrile. Pulse 74, respiratory rate 18, blood pressure 136/61. GENERAL: This is a 65-year-old male resting, arousable in no acute distress with no complaints. HEENT: Head is atraumatic, normocephalic. Eyes show pale conjunctivae but no scleral icterus. No nasal drainage or nosebleed. Oropharynx is moist. No thrush. NECK: Shows no rigidity. HEART: Regular rate and rhythm with murmur present. No gallop or rub appreciated. LUNGS: Clear anteriorly with no wheezing. Breathing is nonlabored. ABDOMEN: Soft, nontender. Bowel sounds are present. EXTREMITIES: No lower extremity cyanosis or pitting edema. SKIN: Dry without rashes. MUSCULOSKELETAL: No joint effusions noted. VASCULAR: Patient has a right arm fistula in place with good bruit and thrill. LYMPHATIC: There is no neck, cervical lymphadenopathy. PSYCHIATRIC: Mood and affect appear normal. DIAGNOSTIC STUDIES LABORATORY: Repeat blood count this morning was 6.8. Chemistry this morning: Potassium was low at 3.2, bicarb 22, BUN and creatinine 59 and 4.7 respectively. INR was 1.1 on admission. Again, I was called with an outpatient lab from dialysis unit with a hemoglobin of 6. ASSESSMENT AND PLAN Unit #: [id number] #: [id number] Patient: AD DHILLON 1. End-stage renal disease: We have scheduled him for his missed dialysis treatment today. Then, we will continue his treatments on Sunday, Sunday, Sunday. 2. Hypokalemia: This should correct with blood transfusions and his dialysis with a 4 potassium bath. 3. Anemia with gastrointestinal bleed: This is recurrent. He is getting a third unit of blood and we have asked GI to see. Source is unclear. 4. Hypertension: Home meds have been renewed. I would like to thank Dr. Lizzette Moreno for this consult and the opportunity to participate in evaluation and care of Mr. Dhillon. Dictated by... Jonnie Vazquez Jr., M.D. CELENA/connie TD: 07/30/2016 11:19 JOB #: [id number] CONSULTATION REPORT Page 1 of 1 X Jonnie Vazquez MD X CONSULTATION REPORT
--- NOTE | ~2016-07-28 | CO ---
Unit #: [id number] #: [id number] Patient: AD DHILLON [id number] [address] [place], [place] [address] [id number] I MR#: [id number] NAME: AD DHILLON ROOM: 227 Age: 65 Sex: M Admission Date: 07/28/2016 : 1950 Attending Physician: Lorna Persaud M.D. Primary Care Physician: Hernando Benitez M.D. Consultation Date: 07/30/2016 CONSULTATION REPORT REASON FOR CONSULTATION Anemia and possibly GI bleed. HISTORY Mr. Dhillon is a pleasant 65-year-old white gentleman who has a longstanding history of end stage renal disease. Patient is on hemodialysis three days a week. He apparently presented with a low hemoglobin, found at the time of evaluation during dialysis. It is noteworthy patient has an extensive workup in the past including multiple endoscopy and colonoscopies done by multiple physicians. Admission hemoglobin was 6.1 however, his baseline hemoglobin is never more than 8 or 9 in the past. He denied any nausea, vomiting, chest pain, syncope. Also he denies any history of lower GI bleed in the form of hematemesis, melena, or hematochezia. There has been no change in the coloration of his stool. PAST MEDICAL HISTORY Significant for end stage renal disease on hemodialysis, history of chronic respiratory failure and treated with oxygen at home, COPD, and obstructive sleep apnea, coronary artery disease, valvular heart disease, hypertension, severe spinal stenosis, diabetes, peripheral neuropathy and renal disease, chronic recurrent anemia. Benign prostatic hypertension, polio with bilateral lower extremity weakness. PAST SURGICAL HISTORY Chronic bypass surgery, history of back surgery, cervical spine surgery, exploratory laparotomy, left AV fistula placement. SOCIAL HISTORY He lives at home with his . Does not drink alcohol. Continues to smoke half pack of cigarettes daily. He is at best limited to wheelchair indoors. FAMILY HISTORY Significant for lung cancer, coronary artery disease and no family history of colon, pancreatic cancer or liver disease. MEDICATIONS AT HOME Catapres, minoxidil, Neurontin, glipizide, hydralazine, labetalol, levothyroxine, Lipitor, insulin, sodium bicarb, amlodipine, and Renvela. ALLERGIES Oxycodone. Unit #: [id number] #: [id number] Patient: AD DHILLON REVIEW OF SYSTEMS A detailed review of organ system does not reveal any recent weight loss. No history of fevers, chills or rigors. No history of headaches, seizures, chest pain or syncope. No history of cough, expectoration, or hemoptysis. No history of dysuria, hematuria or pyuria. No focal seizures or extremity weakness. PHYSICAL EXAMINATION GENERAL: He is awake, alert and oriented, and appears comfortable. VITAL SIGNS: Stable with a temperature of 98.5, pulse is 82 per minute and regular, respiratory rate is 18, blood pressure is 149/69. He weighs 161 pounds, which is close to his baseline weight. HEENT: He has moderate pallor, there being no icterus, lymphadenopathy or peripheral edema. CARDIOVASCULAR: Normal heart sounds. No murmurs of auscultation. LUNGS: Reveals normal breath sounds. Good air entry. ABDOMEN: Soft and nontender. Liver and spleen are not palpable. Bowel sounds are normal. DIAGNOSTIC STUDIES LABORATORY EVALUATION: Shows an admission hemoglobin of 6.1, post transfusion hemoglobin is 7.9, his white count and platelet count showed normal. Serum chemistry shows a BUN and creatinine of 59 and 4.7, blood glucose was 264. Serum albumin preserved at 3.6, potassium is 3.4. I also noticed that patient has had multiple upper endoscopies and colonoscopy in the recent pasts, all of which have been normal. He has also had a push enteroscopy. CLINICAL IMPRESSION 1. Patient most likely has anemia of chronic renal disease rather than GI bleed. In view of extensive workup in the past with a negative evaluation outcome, there is little reason to repeat this endoscopic evaluation again. One can make a case for the GI evaluation case, patient has clinical bleeding. Therefore, suggest treating with either Paxil transfusions or Procrit as needed. Patient can be started on diet and transfused to keep his hemoglobin between 8 and 9. 2. Contain multiple medical problems as listed above under the past medical history. PLAN The above plan is discussed with patient and he was reassured. Thank you for asking me to see this pleasant gentleman. Dictated by.Peter De Dios TD: 07/31/2016 07:32 JOB #: [id number] CC: Lizzette Moreno M.D. Unit #: [id number] #: [id number] Patient: AD DHILLON CONSULTATION REPORT Page 1 of 1 X Diogenes Roy MD CONSULTATION REPORT
--- NOTE | ~2016-07-28 | DS ---
Unit #: [id number] #: [id number] Patient: AD DHILLON [id number] [address] [address] [id number] MR#: [id number] NAME: AD DHILLON ROOM: 227 Age: 65 Sex: M Admission Date: 07/28/2016 : 1950 Discharge Date: Attending Physician: Lorna Persaud M.D. Primary Care Physician: Hernando Benitez M.D. DISCHARGE SUMMARY PRINCIPAL DIAGNOSES 1. Acute gastrointestinal bleed of unknown origin. 2. Acute blood loss anemia, status post transfusion of four units of packed red blood cells. 3. Hypertension, uncontrolled. 4. End stage renal disease, maintained on hemodialysis Sunday, Sunday, Sunday. 5. Hypokalemia. 6. Vitamin B12 deficiency with vitamin B12 level of 230. 7. Chronic obstructive pulmonary disease. 8. Hypertension. 9. Peripheral arterial disease, status post stenting of the left leg at [facility]. 10. Memory loss. 11. Obstructive sleep apnea. 12. Coronary artery disease. 13. History of renal artery stenosis. 14. Severe spinal stenosis. 15. 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 16. Benign prostatic hypertrophy. 17. Polio with chronic bilateral extremity weakness. 18. Chronic respiratory failure, maintained on oxygen at 3 L per nasal cannula at bedtime. 19. 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 Dr. Vazquez - Nephrology. 2. Dr. Roy - Gastroenterology. PROCEDURES 1. Transfusion of four units of packed red blood cells. 2. Hemodialysis per Dr. Vazquez. This was tolerated without complication. CLINICAL HISTORY/HOSPITAL COURSE Mr. Dhillon is a 65-year-old male with a history of end stage renal disease and recurrent anemia, presumed GI origin, who presents to the emergency department after findings of low hemoglobin per blood work done at dialysis. Please refer to H and P for further details. The patient had no signs or symptoms of GI bleed. He was transfused two units of packed red blood cells and admitted. Following transfusion, the patient's hemoglobin increased from 6.1 to as high as 8.2. Dr. Roy was consulted. However, patient had recently Unit #: [id number] #: [id number] Patient: AD DHILLON undergone EGD and colonoscopy in April of 2016 with findings of gastritis and duodenitis and a negative colonoscopy. After discussion with Dr. Roy, the patient opted not to further undergo EGD and colonoscopy. Hemoglobin did drop again but without any obvious signs or symptoms of GI bleed and he has been transfused another two units of packed RBCs. On date of discharge, hemoglobin is now 9.5. The patient underwent hemodialysis under the care of Drs. Vazquez and Maya without any complication. The patient's blood was also uncontrolled at some point but is now well controlled and blood pressure can be monitored closely on antihypertensives. The patient was found to have mild vitamin B12 deficiency and this will be replaced. Upon further discussion with the patient's , the patient recently underwent left leg arterial stenting at [facility] and was placed on aspirin therapy subsequently. After that, he developed what is a presumed GI bleed. We are going to discontinue aspirin. The patient is still significantly weak and will be discharged back to rehab where he was residing prior to this hospitalization. DISCHARGE CONDITION Stable. DISCHARGE STATUS Discharged back to rehab. DISCHARGE MEDICATIONS 1. ProAir RespiClick two puffs daily. 2. DuoNeb nebulizer treatments 3 mL every four hours p.r.n. for shortness of breath. 3. Sodium bicarbonate 650 mg p.o. t.i.d. 4. Neurontin 100 mg p.o. t.i.d. 5. Ethyl chloride spray topically at fistula site before dialysis. 6. Labetalol 200 mg p.o. b.i.d. This can be held if systolic blood pressure is less than 100 or heart rate less than 60. 7. Norvasc 10 mg daily. 8. Lipitor 40 mg at bedtime. 9. Clonidine 0.1 mg p.o. t.i.d. 10. Hydralazine 100 mg p.o. t.i.d. 11. Ferrous gluconate 324 mg b.i.d. 12. Flippin 5/325 mg one tablet p.o. q.6 hours p.r.n. for pain. 13. Renvela 1600 mg p.o. t.i.d. with meals. 14. Protonix 40 mg daily. 15. Levothyroxine 75 mcg p.o. daily. 16. Riboflavin 100 mg daily. 17. Nephrocaps one at bedtime on Sunday, , Sunday, Sunday. 18. Vitamin B12 1,000 mcg p.o. daily. 19. Oxygen at three liters per nasal cannula at bedtime. DISCHARGE INSTRUCTIONS 1. The patient was instructed to follow a Heart Healthy diet. 2. He can increase his activity as tolerated. Unit #: [id number] #: [id number] Patient: AD DHILLON 3. Will continue hemodialysis Sunday, Sunday, Sunday. FOLLOWUP 1. The patient will follow up with his vascular surgeon at [facility] upon discharge from rehab or as previously scheduled. 2. Again, the patient will continue hemodialysis Sunday, Sunday, Sunday. 3. He will follow up with his primary care physician, Dr. Benitez, upon discharge from rehab. ADDITIONAL JOB #: [id number] Dictated by... Lorna Persaud M.D. THONY/flor TD: 08/01/2016 08:00 JOB #: [id number] DISCHARGE SUMMARY Page 1 of 1 X Lorna Persaud MD X DISCHARGE SUMMARY
[~2016-07-28 15:43] MED LIST changes: +AMLODIPINE BESYL5 MG PO; +ANTACID650 MG PO; +B-121000 MC1 PO; +CLONIDINE PO; +FERROUS GLUCON324 MG PO; +LEVOTHYROXINE75 MCG PO; +MINOXIDIL2.5 MG DOB; +NEURONTIN100 MG PO; +RENVELA800 MG DOB
[2016-07-28 16:53] LABS: INR 1.1; PROTHROMBIN TIME (PATIENT) 11.1 SECONDS (9.6-11.5)
[2016-07-28 17:01] LABS: BUN/CREATININE RATIO 12.61; CALCIUM SERUM 8.9 mg/dL (8.4-10.2); CREATININE SERUM 4.2 mg/dL (0.6-1.4); GLOM FILT RATE Estimated 13.7 mL/min (>60); POTASSIUM 3.5 mmol/L (3.5-5.1)
[2016-07-28 17:10] LABS: BASOPHIL# 0.1 X10e3 (0-0.3); EOSINOPHIL# 0.2 X10e3 (0-0.7); EOSINOPHIL% 2.9 % (0.0-7.0); HEMATOCRIT 18.4 % (38.0-50.0); LYMPHOCYTE# 1.1 X10e3 (1.0-3.5); LYMPHOCYTE% 17.4 % (17.0-45.0); MEAN CORPUSCULAR HEMOGLOBIN 29.9 PG (28-34); MEAN CORPUSCULAR HGB CONC 33.2 g/dL (30-36); MEAN PLATELET VOLUME 8.4 FL (6.5-11.5); MONOCYTE# 0.4 X10e3 (0-1.0); MONOCYTE% 5.5 % (3.0-12.0); NEUTROPHIL# 4.8 X10e3 (1.5-7.1); NEUTROPHIL% 73.2 % (40-75); PLATELET COUNT 245 X10e3 (140-420); RED BLOOD COUNT 2.04 X10e (3.90-5.60); RED CELL DISTRIBUTION WIDTH 15.8 % (11.0-15.5); WHITE BLOOD COUNT 6.5 X10e3 (4.0-10.5)
[2016-07-28 17:19] LABS: DIFF IND YES; HEMOGLOBIN 6.1 gm/dL (13.0-16.0)
[2016-07-28 17:52] LABS: PLATELET ESTIMATE NORMAL (NORMAL)
[2016-07-28 17:53] LABS: RBC NORMAL YES
[2016-07-28] MEDS ORDERED: PROAIR RESPICL90 MCG INH (20:00)
[2016-07-28] MEDS ORDERED: NORVASC10 MG PO (20:00)
[2016-07-28] MEDS ORDERED: ASPIRIN EC81 M1 PO (20:05)
[2016-07-28] MEDS ORDERED: LIPITOR40 MG PO (20:05)
[2016-07-28] MEDS ORDERED: CATAPRES0.1 MG PO (20:05)
[2016-07-28] MEDS ORDERED: ETHYL CHLORI103.5 ML TOP (20:06)
[2016-07-28] MEDS ORDERED: NEURONTIN100 MG PO (20:07)
[2016-07-28] MEDS ORDERED: FERROUS GLUCON324 M1 PO (20:07)
[2016-07-28] MEDS ORDERED: HYDROCODON-ACE1 EAC7 PO (20:07)
[2016-07-28] MEDS ORDERED: HYDRALAZINE HC100 MG PO (20:07)
[2016-07-28] MEDS ORDERED: LABETALOL HCL200 MG PO (20:08)
[2016-07-28] MEDS ORDERED: NEPHROCAPS QT1 EACH PO (20:08)
[2016-07-28] MEDS ORDERED: IPRAT-ALBUT 0.5-3 ML INH (20:08)
[2016-07-28] MEDS ORDERED: RENVELA800 MG PO (20:09)
[2016-07-28] MEDS ORDERED: PROTONIX PO (20:09)
[2016-07-28] MEDS ORDERED: RIBOFLAVIN100 MG PO (20:09)
[2016-07-28] MEDS ORDERED: SYNTHROID75 MCG PO (20:10)
[2016-07-28] MEDS ORDERED: ANTACID650 MG PO (20:10)
[2016-07-29 06:07] LABS: BUN/CREATININE RATIO 12.55; CALCIUM SERUM 8.6 mg/dL (8.4-10.2); CREATININE SERUM 4.7 mg/dL (0.6-1.4); GLOM FILT RATE Estimated 11.9 mL/min (>60); POTASSIUM 3.2 mmol/L (3.5-5.1)
[2016-07-29 06:11] LABS: BASOPHIL# 0.1 X10e3 (0-0.3); BASOPHIL% 1.2 % (0-2.5); EOSINOPHIL# 0.2 X10e3 (0-0.7); EOSINOPHIL% 2.6 % (0.0-7.0); HEMATOCRIT 20.5 % (38.0-50.0); LYMPHOCYTE# 1.4 X10e3 (1.0-3.5); LYMPHOCYTE% 18.6 % (17.0-45.0); MEAN CELL VOLUME 89.1 FL (83-96); MEAN CORPUSCULAR HEMOGLOBIN 29.4 PG (28-34); MEAN PLATELET VOLUME 8.1 FL (6.5-11.5); MONOCYTE# 0.4 X10e3 (0-1.0); MONOCYTE% 5.6 % (3.0-12.0); NEUTROPHIL# 5.4 X10e3 (1.5-7.1); PLATELET COUNT 250 X10e3 (140-420); RED CELL DISTRIBUTION WIDTH 15.2 % (11.0-15.5); WHITE BLOOD COUNT 7.5 X10e3 (4.0-10.5)
[2016-07-29 06:14] LABS: HEMOGLOBIN 6.8 gm/dL (13.0-16.0)
[2016-07-29 06:15] LABS: DIFF IND NO
[2016-07-29 16:11] LABS: HEMATOCRIT 23.8 % (38.0-50.0); HEMOGLOBIN 7.9 gm/dL (13.0-16.0)
[2016-07-30 07:24] LABS: HEMATOCRIT 24.4 % (38.0-50.0); HEMOGLOBIN 8.2 gm/dL (13.0-16.0); MEAN CELL VOLUME 88.3 FL (83-96); MEAN CORPUSCULAR HEMOGLOBIN 29.8 PG (28-34); MEAN CORPUSCULAR HGB CONC 33.7 g/dL (30-36); RED BLOOD COUNT 2.77 X10e (3.90-5.60); RED CELL DISTRIBUTION WIDTH 15.5 % (11.0-15.5); WHITE BLOOD COUNT 8.5 X10e3 (4.0-10.5)
[2016-07-30 08:09] LABS: BUN/CREATININE RATIO 8.69; CALCIUM SERUM 9.1 mg/dL (8.4-10.2); CREATININE SERUM 2.3 mg/dL (0.6-1.4); GLOM FILT RATE Estimated 28.3 mL/min (>60); POTASSIUM 3.4 mmol/L (3.5-5.1)
[2016-07-31 05:32] LABS: HEMATOCRIT 22.2 % (38.0-50.0); HEMOGLOBIN 7.5 gm/dL (13.0-16.0)
[2016-07-31 06:00] LABS: BUN/CREATININE RATIO 9.72; CREATININE SERUM 3.6 mg/dL (0.6-1.4); GLOM FILT RATE Estimated 16.5 mL/min (>60); POTASSIUM 3.6 mmol/L (3.5-5.1)
[2016-08-01 05:17] LABS: HEMATOCRIT 28.2 % (38.0-50.0); HEMOGLOBIN 9.5 gm/dL (13.0-16.0); MEAN CELL VOLUME 86.8 FL (83-96); MEAN CORPUSCULAR HEMOGLOBIN 29.1 PG (28-34); MEAN CORPUSCULAR HGB CONC 33.6 g/dL (30-36); MEAN PLATELET VOLUME 7.8 FL (6.5-11.5); RED BLOOD COUNT 3.25 X10e (3.90-5.60); RED CELL DISTRIBUTION WIDTH 16.2 % (11.0-15.5); WHITE BLOOD COUNT 7.2 X10e3 (4.0-10.5)
[2016-08-01 05:55] LABS: BUN/CREATININE RATIO 7.39; CALCIUM SERUM 9.1 mg/dL (8.4-10.2); CREATININE SERUM 2.3 mg/dL (0.6-1.4); GLOM FILT RATE Estimated 28.3 mL/min (>60); POTASSIUM 3.7 mmol/L (3.5-5.1)
[2016-08-02 00:59] LABS: HEP B SURFACE AG Nonreactive (Nonreactive)
== END 2016-08-01 18:32 | DRG 377 ==
LOC: CED 15:43 → CEDOF 19:00 → C2A 19:00 → CED 19:27 → CEDOF 19:27 → C3A PCU 21:22 → CEDOF 21:22 → C3A PCU 21:22 → C2A 07-30 10:20 → C3A PCU 07-30 10:20 → C2A 08-01 18:32
PROVIDERS: Emergency Medicine; Internal Medicine; Internal Medicine Nephrology
PROC: 30233N1 Transfusion of Nonautologous Red Blood Cells into Peripheral Vein, Percutaneous Approach (ICD-10-PCS; principal; 2016-07-28)
PROC: 5A1D60Z (ICD-10-PCS; 2016-07-29)
DX: K92.2 Gastrointestinal hemorrhage, unspecified (principal); N18.6 End stage renal disease; J96.10 Chronic respiratory failure, unspecified whether with hypoxia or hypercapnia; I12.0 Hypertensive chronic kidney disease with stage 5 chronic kidney disease or end stage renal disease; I27.2 Other secondary pulmonary hypertension; E11.22 Type 2 diabetes mellitus with diabetic chronic kidney disease; D62 Acute posthemorrhagic anemia; E11.42 Type 2 diabetes mellitus with diabetic polyneuropathy; E87.6 Hypokalemia; E53.8 Deficiency of other specified B group vitamins; J44.9 Chronic obstructive pulmonary disease, unspecified; I73.9 Peripheral vascular disease, unspecified; G47.33 Obstructive sleep apnea (adult) (pediatric); I25.10 Atherosclerotic heart disease of native coronary artery without angina pectoris; Z95.1 Presence of aortocoronary bypass graft; R41.3 Other amnesia; M48.00 Spinal stenosis, site unspecified; Z79.84 Long term (current) use of oral hypoglycemic drugs; N40.0 Benign prostatic hyperplasia without lower urinary tract symptoms; Z86.12 Personal history of poliomyelitis; F17.210 Nicotine dependence, cigarettes, uncomplicated; Z80.9 Family history of malignant neoplasm, unspecified; Z82.49 Family history of ischemic heart disease and other diseases of the circulatory system; Z99.2 Dependence on renal dialysis
CPT/HCPCS: 80048; 82947; 83735; 85014; 85018; 85025; 85027; 85610; 86850; 86900; 86901; 86923; 87340; 94640; 94760; 97116; 97161; 97165; 97530; 97535; 99285; C9113; G8978-GP; G8979-GP; G8987-GO; G8988-GO; J0885; J1815; J3420; P9016

== ENCOUNTER 2016-09-14 06:27 | Emergency (ER) | payer OTHER, BC ==
[~2016-09-14 06:27] MED LIST changes: +ASPIRIN EC81 M1 PO; +ETHYL CHLORI103.5 ML TOP; +FERROUS GLUCON324 M1 PO; +HYDROCODON-ACE1 EAC7 PO; +IPRAT-ALBUT 0.5-3 ML INH; +NEPHROCAPS QT1 EACH PO; +NORVASC10 MG PO; +PROAIR RESPICL90 MCG INH; +RENVELA800 MG PO; +RIBOFLAVIN100 MG PO
== END 2016-09-14 07:12 | disposition home or self-care (01) ==
LOC: CED 06:27 → CFTX 06:58 → CED 06:58
DX: T82.838A Hemorrhage due to vascular prosthetic devices, implants and grafts, initial encounter (principal); N18.6 End stage renal disease; Z99.2 Dependence on renal dialysis; Z88.8 Allergy status to other drugs, medicaments and biological substances
CPT/HCPCS: 99283